=== PATIENT | male | born 1980 | race Caucasian/White ===

== ENCOUNTER 2017-05-10 23:12 | Emergency (ER) | payer BC, OTHER ==
[2017-05-10 23:22] VITALS: BP 134/90; PULSE 110; RESP 20; TEMP 98.2; O2SAT 95
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
== END 2017-05-11 01:31 | disposition home or self-care (01) ==
LOC: C.ER 23:12
DX: S00.12XA Contusion of left eyelid and periocular area, initial encounter (principal); W22.8XXA Striking against or struck by other objects, initial encounter; Y93.55 Activity, bike riding